=== PATIENT | female | born 1975 | race African-American/Black ===

== ENCOUNTER 2016-04-25 11:49 | Emergency (ER) | payer OTHER ==
[2016-04-25 11:58] VITALS: BP 134/87; PULSE 83; TEMP 98.3; BMI 39.1
[2016-04-25] MEDS ORDERED: KETOROLAC TROMETHAMINE 30 MG/1 ML VIAL IVPUSH ONE (15:14)
[2016-04-25] MEDS ORDERED: KETOROLAC TROMETHAMINE 30 MG/1 ML VIAL ONE (15:24)
--- NOTE | 2016-04-25 15:25 | PDOC ---
History of Present Illness - General Chief Complaint: Weakness Stated Complaint: DIZZINESS, WEAKNESS Time Seen by Provider: 04/25/16 14:24 History Source: Patient Exam Limitations: No Limitations - History of Present Illness Initial Comments: 04/25/16 15:16 40-year-old female presents the ED with complaints of chills, cough, and shortness of breath with exertion worsening over the past few days but present for approximately one month. 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 patient states is not a smoker has calf pain, recent travel, recent surgery, or on exogenous estrogen usage. Severity: mild, moderate Associated Symptoms: reports: chest pain, cough, fever/chills (chills), shortness of breath (with exertion), weakness (mild). denies: headaches, loss of appetite, malaise, nausea/vomiting Past History - Past Medical History Allergies/Adverse Reactions: Allergies Allergy/AdvReac Type Severity Reaction Status Date / Time ibuprofen Allergy Hives Verified 04/25/16 11:54 morphine AdvReac Mild Rash Verified 04/25/16 11:54 Home Medications: Ambulatory Orders Amlodipine Besylate [Norvasc -] 10 mg PO DAILY 04/25/16 HTN: Yes Suicide Attempt (Hx): No - Reproductive History LMP Normal: Yes Is Patient Now?: No (#): 10 Para: 4 Therapeutic (s) & number: Yes (5) - Immunization History Td Vaccination: No - Psycho/Social/Smoking Cessation Hx Anxiety: No Suicidal Ideation: No Smoking Status: No Smoking History: Never smoked Have you smoked in the past 12 months: No Number of Cigarettes Smoked Daily: 0 Information on smoking cessation initiated: No Hx Alcohol Use: No Drug/Substance Use Hx: No Substance Use Type: None Patient Lives Alone: No Lives with/in: spouse/SO Review of Systems - Review of Systems Able to Perform ROS?: Yes Constitutional: Yes: Chills, Weakness HEENTM: Yes: Nose Congestion. No: Symptoms Reported Respiratory: Yes: SOB with Exertion Cardiac (ROS): No: Symptoms Reported ABD/GI: No: Symptoms Reported : No: Symptoms Reported Musculoskeletal: No: Symptoms Reported Integumentary: No: Symptoms Reported Neurological: Yes: Headache (mild frontal) Endocrine: No: Symptoms Reported Hematologic/Lymphatic: No: Symptoms Reported *Physical Exam - Vital Signs Last Vital Signs Temp Pulse Resp BP Pulse Ox 98.3 F 83 18 134/87 100 04/25/16 11:55 04/25/16 11:55 04/25/16 11:55 04/25/16 11:55 04/25/16 11:55 - Physical Exam General Appearance: Yes: Nourished, Appropriately Dressed. No: Apparent Distress HEENT: positive: Pharynx Normal, Nasal Congestion (mild bilateral). negative: Pale Conjunctivae, Sinus Tenderness Neck: positive: Normal Thyroid, Supple. negative: Lymphadenopathy (R), Lymphadenopathy (L) Respiratory/Chest: positive: Lungs Clear, Normal Breath Sounds. negative: Respiratory Distress, Accessory Muscle Use Cardiovascular: positive: Regular Rhythm, Regular Rate. negative: Murmur Gastrointestinal/Abdominal: positive: Soft. negative: Tenderness Extremity: negative: Pedal Edema, Calf Tenderness Integumentary: positive: Normal Color, Warm, Moist Neurologic: positive: Motor Strength 5/5 (ambulatory) ED Treatment Course - LABORATORY CBC & Chemistry Diagram: 04/25/16 15:30 04/25/16 15:30 - RADIOLOGY Radiology Studies Ordered: Category Date Time Status CHEST PA & LAT [RAD] Stat Radiology 04/25/16 15:14 Ordered Medical Decision Making - Medical Decision Making 04/25/16 15:07 Patient complains of URI symptoms including chills nasal congestion, and now with shortness of breath with minimal exertion. Patient states had the flu approximately 4 weeks but states symptoms continued. Patient was PERC -. Patient was ordered for labs including cardiac profile, d-dimer, chest x-ray, lactic and blood culture as this may be pneumonia secondary to pneumonia 04/25/16 17:35 Laboratory Tests 04/25/16 04/25/16 04/25/16 15:30 15:30 15:30 WBC 9.8 Hgb 12.7 Hct 37.2 Plt Count 309 D Neutrophils % 73.6 D D-Dimer Sodium 139 Potassium 4.8 Chloride 105 Carbon Dioxide 26 Anion Gap 8 Random Glucose 82 Lactic Acid 0.589 ALT 18 Creatine Kinase 132 Troponin I < 0.02 Urine Blood Ur Leukocyte Esterase Urine RBC Urine WBC Urine HCG, Qual 04/25/16 04/25/16 04/25/16 15:40 15:40 16:31 WBC Hgb Hct Plt Count Neutrophils % D-Dimer 312 H Sodium Potassium Chloride Carbon Dioxide Anion Gap Random Glucose Lactic Acid ALT Creatine Kinase Troponin I Urine Blood 2+ H Ur Leukocyte Esterase Negative Urine RBC 2 Urine WBC 1 Urine HCG, Qual Negative Pt ordered for chest CTA to r/o PE. patient states feeling better. 04/25/16 18:50 Upon return from CAT scan patient is complaining of itching without hives difficulty swallowing, or difficulty breathing. Patient ordered for Solu-Medrol and Benadryl. 04/25/16 18:[address] shows left by basilar atelectasis otherwise normal CT of the chest with no evidence of PE or acute pathology. Patient will follow up with her PCP and be given a copy of her head scan and labs. *DC/Admit/Observation/Transfer Diagnosis at time of Disposition: Cough, Shortness of breath on exertion, Bronchitis - Discharge Dispostion Disposition: HOME Condition at time of disposition: Improved - Referrals Referrals: Anthony Gee [Primary Care Provider] - - Patient Instructions Printed Discharge Instructions: DI for Acute Bronchitis Additional Instructions: I recommend taking antibiotics until completed. Drink plenty of fluids and use throat lozenges to alleviate symptoms. Follow-up with your PCP and bring copy of your labs and CT with you.
[2016-04-25 15:43] LABS: BASOPHIL 1.2 % (0-2.0); EOSINOPHIL 3.2 % (0-4.5); MCH 28.9 pg (25.7-33.7); MCHC 34.3 g/dl (32.0-36.0); MEAN CELL VOLUME 84.4 fl (80-96); MEAN PLT VOLUME 8.6 fl (7.5-11.1); NEUTROPHILS 73.6 % (42.8-82.8); PLATELET COUNT 309 K/MM3 (134-434); RDW 14.8 % (11.6-15.6); WHITE BLOOD COUNT 9.8 K/mm3 (4.0-10.0)
[2016-04-25 15:48] LABS: URINE APPEARANCE CLEAR; URINE BILIRUBIN NEGATIVE (NEGATIVE); URINE COLOR LTYELLOW; URINE GLUCOSE (UA) NEGATIVE (NEGATIVE); URINE KETONE NEGATIVE (NEGATIVE); URINE LEUK ESTERASE NEGATIVE (NEGATIVE); URINE NITRITE NEGATIVE (NEGATIVE); URINE PROTEIN NEGATIVE (NEGATIVE); URINE UROBILINOGEN NEGATIVE E.U./dl (0.2-1.0)
[2016-04-25 16:02] LABS: URINE BLOOD 2+ (NEGATIVE)
[2016-04-25 16:04] LABS: URINE MUCUS FEW; URINE RBC 2 /hpf (0-3); URINE WBC 1 /hpf (3-5)
[2016-04-25 16:04] LABS: ALBUMIN 3.5 g/dl (3.4-5.0); ANION GAP 8 (8-16); BILIRUBIN,TOTAL 0.4 mg/dL (0.2-1.0); CALCIUM 8.7 mg/dL (8.5-10.1); CO2 26 mmol/L (21-32); CREATININE 0.7 mg/dL (0.55-1.02); GLUCOSE,RANDOM 82 mg/dL (74-106); SGPT/ALT 18 U/L (12-78); TOT PROT 7.2 g/dl (6.4-8.2)
[2016-04-25 16:06] LABS: ALK PHOS 49 U/L (45-117)
[2016-04-25 16:11] LABS: SGOT/AST 16 U/L (15-37); TROPONIN I < 0.02 ng/ml (0.00-0.05)
[2016-04-25] MEDS ORDERED: methylPREDNISolone NA SUCC 125 MG/2 ML VIAL IVPB ONE (18:53)
[2016-04-25] MEDS ORDERED: methylPREDNISolone NA SUCC 125 MG/2 ML VIAL ONE (19:08)
--- NOTE | 2016-04-27 14:21 | EKG ---
Test Reason : Blood Pressure : / mmHG Vent. Rate : 075 BPM Atrial Rate : 075 BPM P-R Int : 202 ms QRS Dur : 096 ms QT Int : 376 ms P-R-T Axes : 023 -14 009 degrees QTc Int : 419 ms NORMAL SINUS RHYTHM MODERATE VOLTAGE CRITERIA FOR LVH, MAY BE NORMAL VARIANT BORDERLINE ECG WHEN COMPARED WITH ECG OF 28-APR-2015 19:14, NO SIGNIFICANT CHANGE WAS FOUND Confirmed by MYRANDA TORRES MD ([id number]) on 04/27/2016 2:20:37 PM Referred By: Confirmed By:MYRANDA TORRES MD
== END 2016-04-25 19:59 | disposition home or self-care (01) ==
LOC: JER 11:49
PROC: 3E033GC Introduction of Other Therapeutic Substance into Peripheral Vein, Percutaneous Approach (ICD-10-PCS; principal; 2016-04-25)
PROC: 3E0333Z Introduction of Anti-inflammatory into Peripheral Vein, Percutaneous Approach (ICD-10-PCS; 2016-04-25)
DX: J40 Bronchitis, not specified as acute or chronic (principal); R06.02 Shortness of breath; R05 Cough; I10 Essential (primary) hypertension
CPT/HCPCS: 36415; 71020-TC; 71275-TC; 80053; 81003; 81015; 82550; 83605; 84484; 84703; 85025; 85379; 87040; 93005; 93010; 96374; 96375; 99283-25

== ENCOUNTER 2016-06-18 12:32 | Inpatient (IN) | payer OTHER ==
[2016-06-18 12:45] VITALS: BMI 40.3
--- NOTE | 2016-06-18 13:48 | PDOC ---
History of Present Illness - General Chief Complaint: Pain, Acute Stated Complaint: ABD PAIN Time Seen by Provider: 06/18/16 13:24 History Source: Patient Exam Limitations: No Limitations - History of Present Illness Travel History: No Initial Comments: 06/18/16 14:04 My chief complaint: Abdominal discomfort right upper lower since this morning with nausea and one episode of vomiting History of present illness: Patient is a 41-year-old female with a history of hypertension here today with sudden onset of right upper quadrant abdominal discomfort and lower abdominal discomfort and suprapubic discomfort with nausea. Patient reports that she vomited once. Patient denies any constipation or any diarrhea patient's last bowel movement was yesterday and was normal formed brown. Patient reports belging a few times. Pt. urinary symptoms or any history of renal calculi. Patient denies any oral discharge or any pain with sexual relations. Patient reports having an IUD for the last 2 years and spots once a month. Patient reports that pain is constant and is worse in certain positions when she is lying causing her to have to change her position. 06/18/16 14:05 06/18/16 14:11 06/18/16 18:[address] Anthony Gee PFSH: does not smoke or drinks drug use Surgical hx: rt. ankle surgical repair Past Medical HX: HTN, IVP 06/18/16 19:28 Timing/Duration: reports: other (lessens when she changes her position lying down) Abdominal Pain Onset Location: reports: RUQ, RLQ, suprapubic Pain Radiation: reports: no radiation. denies: flank Activities at Onset: reports: no specific activity Aggravating Factors: improves with: Change in position Alleviating Factors: improves with: Belching, Vomiting (once today) Past History - Past Medical History Allergies/Adverse Reactions: Allergies Allergy/AdvReac Type Severity Reaction Status Date / Time ibuprofen Allergy Hives Verified 06/18/16 12:42 morphine AdvReac Mild Rash Verified 06/18/16 12:42 Home Medications: Ambulatory Orders Amlodipine Besylate [Norvasc -] 10 mg PO DAILY 04/25/16 Acetaminophen [Tylenol .Regular Strength -] 650 mg PO Q6H PRN #0 tablet Amox-Tr/K Cl [Augmentin 875-125mg Tablet -] 1 tab PO BID@0800,1730 #10 tablet Amoxicillin/Potassium Clav [Augmentin 875-125 Tablet] 1 each PO BID #10 tablet 06/19/16 HTN: Yes Suicide Attempt (Hx): No - Reproductive History (#): 10 Para: 4 Therapeutic (s) & number: Yes (5) - Immunization History Td Vaccination: No - Psycho/Social/Smoking Cessation Hx Anxiety: No Suicidal Ideation: No Smoking Status: No Smoking History: Never smoked Have you smoked in the past 12 months: No Number of Cigarettes Smoked Daily: 0 Hx Alcohol Use: No Drug/Substance Use Hx: No Substance Use Type: None Abd/GI Specific PMHX - Complaint Specific PMHX Colitis: No Diverticulitis: No Gall Bladder Disease: No GERD: No Hepatitis: No Irritable Bowel Synd (IBS): No Pancreatitis: No GI Ulcer Disease: No Review of Systems - Review of Systems Able to Perform ROS?: Yes Constitutional: No: Symptoms Reported HEENTM: No: Symptoms Reported Respiratory: No: Symptoms reported Cardiac (ROS): No: Symptoms Reported ABD/GI: Yes: Nausea, Vomiting (onc todya ). No: Constipated, Diarrhea, Difficulty Swallowing : No: Symptoms Reported, Other Musculoskeletal: No: Symptoms Reported Integumentary: No: Symptoms Reported *Physical Exam - Vital Signs Last Vital Signs Temp Pulse Resp BP Pulse Ox 98.4 F 87 19 128/87 99 06/18/16 12:42 06/18/16 12:42 06/18/16 12:42 06/18/16 12:42 06/18/16 12:42 - Physical Exam General Appearance: Yes: Appropriately Dressed Respiratory/Chest: positive: Lungs Clear, Normal Breath Sounds. negative: Chest Tender, Respiratory Distress Cardiovascular: positive: Regular Rhythm, Regular Rate, S1, S2 Gastrointestinal/Abdominal: positive: Normal Bowel Sounds, Tender (RUQ, RLQ, suprapubic ), Soft, Tenderness (RUQ,RLQ,suprapubic). negative: Distended, Guarding, Rebound Musculoskeletal: negative: CVA Tenderness, CVA Tenderness (R), CVA Tenderness (L ) Integumentary: positive: Normal Color Neurologic: positive: Alert, Normal Response, Responsive ED Treatment Course - LABORATORY CBC & Chemistry Diagram: 06/19/16 07:00 06/19/16 07:00 Medical Decision Making - Medical Decision Making 06/18/16 14:11 06/18/16 14:11 Patient is a 41-year-old female with a history of hypertension here today with sudden onset of right upper quadrant abdominal discomfort and lower abdominal discomfort and suprapubic discomfort with nausea. Patient reports that she vomited once. Patient denies any constipation or any diarrhea patient's last bowel movement was yesterday and was normal formed brown. Patient reports belging a few times. Pt. urinary symptoms or any history of renal calculi. Patient denies any oral discharge or any pain with sexual relations. Patient reports having an IUD for the last 2 years and spots once a month. Patient reports that pain is constant and is worse in certain positions when she is lying causing her to have to change her position. R/O cholelithiasis/cholecystitis PLAN: Gallbladder ultrasound reveals limited study with no evidence of cholelithiasis or acute cholecystitis. Probable diffuse fatty infiltration of the liver. Mild right-sided hydronephrosis. Clinical correlation follow-up recommended that is mild. IVP patent. The possibility of a distal obstruction cannot be excluded. Per Dr. Farrell cbc with diff cmp ua urine hcg urine C & S lipase IV insert NS 0.9% bolus 1000 ml pepcid 20 mg IMVPB zofran 4 mg IVpush 06/18/16 14:05 06/18/16 15:33 pt returned from US reports less pain but continues to have RUQ, RLQ tenderness will give toradol 30 mg IV push has taken in the past without any kind of allergic reaction. 06/18/16 15:34 06/18/16 15:36 Laboratory Tests 06/18/16 06/18/16 06/18/16 13:53 13:53 13:53 WBC 16.0 H D RBC 4.36 Hgb 12.5 Hct 37.3 MCV 85.7 MCHC 33.5 RDW 14.5 Plt Count 256 MPV 8.4 Lymphocytes % 6.4 L D Monocytes % 2.7 L Eosinophils % 1.5 Basophils % 0.4 Sodium 140 Potassium 5.0 Chloride 105 Carbon Dioxide 29 Anion Gap 6 L BUN 11 Creatinine 0.7 Creat Clearance w eGFR > 60 Random Glucose 92 Calcium 8.5 Total Bilirubin 0.4 AST 20 D ALT 19 Alkaline Phosphatase 43 L Total Protein 6.7 Albumin 3.3 L Lipase 145 Urine Color Urine Appearance Urine pH Ur Specific [place] Urine Protein Urine Glucose (UA) Urine Ketones Urine Blood Urine Nitrite Urine Bilirubin Urine Urobilinogen Ur Leukocyte Esterase Urine HCG, Qual 06/18/16 13:53 WBC RBC Hgb Hct MCV MCHC RDW Plt Count MPV Lymphocytes % Monocytes % Eosinophils % Basophils % Sodium Potassium Chloride Carbon Dioxide Anion Gap BUN Creatinine Creat Clearance w eGFR Random Glucose Calcium Total Bilirubin AST ALT Alkaline Phosphatase Total Protein Albumin Lipase Urine Color Yellow Urine Appearance Clear Urine pH 7.0 D Ur Specific [place] 1.026 Urine Protein Negative Urine Glucose (UA) Negative Urine Ketones Negative Urine Blood Negative Urine Nitrite Negative Urine Bilirubin Negative Urine Urobilinogen 2.0 e.u/dl H Ur Leukocyte Esterase Negative Urine HCG, Qual Negative 06/18/16 16:40 Will get ABDOMINAL and pelvic cat scan without contrast patient's CAT scan revealed a 13 mL diameter appendix with indistinct surrounding fat planes compatible with acute appendicitis. No abscess or free air. IUD and uterus. Trace free fluids left adnexal probable physiologic Dr. Mendoza imaging hearing consultant will get type and screen zosyn 3.375.5 gm IV PB now consult with Dr. Miller SURGEON he will evaluate pt in ED for surgical consult will admit to Dr. Pratt Pt's PCP is Dr.Nasem Gee 06/18/16 18:39 06/18/16 18:52 06/18/16 18:53 06/18/16 19:11 06/18/16 19:11 06/18/16 19:29 06/18/16 19:30 06/18/16 19:34 06/20/16 19:43 *DC/Admit/Observation/Transfer Diagnosis at time of Disposition: Appendicitis, acute Qualifiers: Acute appendicitis type: unspecified acute appendicitis type Qualified Code(s) : K35.80 - Unspecified acute appendicitis - Discharge Dispostion Disposition: HOME Admit: Yes - Prescriptions - Referrals - Patient Instructions
[2016-06-18] MEDS ORDERED: SODIUM CHLORIDE 1,000 ML IV STA (13:57)
[2016-06-18] MEDS ORDERED: FAMOTIDINE 20 MG/50 ML IVPB 50 ML IVPB ONE ×2 (13:58→14:07)
[2016-06-18] MEDS ORDERED: ONDANSETRON 4 MG/2 ML VIAL IVPB ONE (13:58)
[2016-06-18] MEDS ORDERED: ONDANSETRON 4 MG/2 ML VIAL ONE (14:07)
[2016-06-18 14:32] LABS: BASOPHIL 0.4 % (0-2.0); EOSINOPHIL 1.5 % (0-4.5); MCH 28.7 pg (25.7-33.7); MCHC 33.5 g/dl (32.0-36.0); MEAN CELL VOLUME 85.7 fl (80-96); MEAN PLT VOLUME 8.4 fl (7.5-11.1); PLATELET COUNT 256 K/MM3 (134-434); RDW 14.5 % (11.6-15.6)
[2016-06-18 14:40] LABS: URINE APPEARANCE CLEAR; URINE BILIRUBIN NEGATIVE (NEGATIVE); URINE BLOOD NEGATIVE (NEGATIVE); URINE COLOR YELLOW; URINE GLUCOSE (UA) NEGATIVE (NEGATIVE); URINE KETONE NEGATIVE (NEGATIVE); URINE LEUK ESTERASE NEGATIVE (NEGATIVE); URINE NITRITE NEGATIVE (NEGATIVE); URINE PROTEIN NEGATIVE (NEGATIVE); URINE UROBILINOGEN 2.0 E.U/dl E.U./dl (0.2-1.0)
[2016-06-18 15:00] LABS: ALBUMIN 3.3 g/dl (3.4-5.0); ALK PHOS 43 U/L (45-117); ANION GAP 6 (8-16); BILIRUBIN,TOTAL 0.4 mg/dL (0.2-1.0); CALCIUM 8.5 mg/dL (8.5-10.1); CO2 29 mmol/L (21-32); CREATININE 0.7 mg/dL (0.55-1.02); GLUCOSE,RANDOM 92 mg/dL (74-106); SGPT/ALT 19 U/L (12-78); TOT PROT 6.7 g/dl (6.4-8.2)
[2016-06-18 15:03] LABS: SGOT/AST 20 U/L (15-37)
[2016-06-18] MEDS ORDERED: KETOROLAC TROMETHAMINE 60 MG/2 ML VIAL IVPUSH ONE (15:51)
[2016-06-18] MEDS ORDERED: KETOROLAC TROMETHAMINE 30 MG/1 ML VIAL ONE (16:17)
[2016-06-18] MEDS ORDERED: PIPERACILLIN/TAZOB 3.375 GM 3.375 GM in DEXTROSE 5%-WATER - 50 ML IVPB ONE (18:49)
[2016-06-18] MEDS ORDERED: PIPERACILLIN/TAZOB 3.375 GM 50 ML IVPB ONE (18:53)
--- NOTE | 2016-06-18 20:11 | PN ---
Progress Note (short form) - Note Progress Note: surgery pt seen and examined. full consult dictated. 41f morbidly obese presents with abd pain, n/v. wbc 16. u/s negative. ct shows acute appendicitis. on exam abd is soft with localized rlq tenderness with rebound. reducible ventral hernia. Plan- acute appendicitis, leukocytosis, localized peritonitis. agree with admission. agree with zosyn to cover e.coli and other gram -/enteric [place]. will proceed with surgery
--- NOTE | 2016-06-18 20:13 | OP ---
Operative Note - Note: Operative Date: 06/18/16 Pre-Operative Diagnosis: acute appendicitis, localized peritonitis, morbid obesity Operation: laparoscopic appedectomy, lavage Post-Operative Diagnosis: Same as Pre-op Surgeon: Cristhian Diaz Anesthesiologist/OFFICE COMMUNICATION PROFESSOR: Cristhian Urbina Anesthesia: General Specimens Removed: appendix Estimated Blood Loss (mls): 10 Operative Report Dictated: Yes
[2016-06-18] MEDS ORDERED: KETOROLAC TROMETHAMINE 30 MG/1 ML VIAL IVPUSH PRN (20:14)
[2016-06-18] MEDS ORDERED: oxyCODONE HCL 5 MG TABLET PO PRN ×2 (20:14→21:54)
[2016-06-18] MEDS ORDERED: ONDANSETRON 4 MG/2 ML VIAL IVPB PRN (20:14)
[2016-06-18] MEDS ORDERED: D5-1/2NS+20 MEQ KCL - 1,000 ML IV SCH (20:15)
[2016-06-18] MEDS ORDERED: HYDROmorphone HCL CARPU-JECT 1 MG/1 ML DISP.SYRIN IVPB PRN (20:20)
[2016-06-18] MEDS ORDERED: ROCURONIUM BROMIDE 50 MG/5 ML VIAL ONE (20:37)
[2016-06-18] MEDS ORDERED: SUCCINYLCHOLINE CHLORIDE 200 MG/10 ML VIAL ONE (20:37)
[2016-06-18] MEDS ORDERED: ceFAZolin SODIUM 1 GM VIAL IVPB ONE (20:55)
--- NOTE | 2016-06-18 21:26 | CONS ---
DATE OF CONSULTATION: 06/18/2016 REASON FOR CONSULTATION: Acute appendicitis. This is a consultation at the request of the emergency room physician and thus an emergency room consultation. BRIEF HISTORY: This is a 41-year-old female with morbid obesity and hypertension, presents to [facility] with less than 1 day history of right-sided abdominal pain, nausea and vomiting. She was found to have a leukocytosis in the emergency room and her vital signs were otherwise stable. She was initially worked up for gallbladder disease with a negative ultrasound, then went for a CAT scan of her abdomen and pelvis, which was consistent with acute appendicitis. Patient was admitted to the hospital, started on Zosyn antibiotic, and a surgical consultation was requested. PAST MEDICAL HISTORY: As in HPI. PAST SURGICAL HISTORY: Right ankle surgery and IUD as well as multiple D&Cs. SOCIAL HISTORY: Negative for alcohol, negative for tobacco. FAMILY HISTORY: Negative for malignancy in the immediate family. She has allergies to MORPHINE, which caused her to itch, and she has allergies to IBUPROFEN but not to Motrin. Her IBUPROFEN allergy causes itching as well. She has never had a colonoscopy. Her home medication include Norvasc. REVIEW OF SYSTEMS: General: Denies fatigue or malaise. Cardiac: Denies chest pain or palpitations. Respiratory: Denies shortness of breath or wheeze. Gastrointestinal: No diarrhea, no blood in her stool, otherwise as stated in HPI. Genitourinary: Denies dysuria. Musculoskeletal: Denies joint pain, joint swelling. Psychiatric: Denies anxiety, depression, or hearing voices. PHYSICAL EXAMINATION: General: This is a morbidly obese 41-year-old female in no distress. Vital Signs: She is afebrile, her vital signs are stable. HEENT: Her head is normocephalic. Sclerae anicteric. Neck: Supple. Chest: Clear. Abdomen: Soft. There is a ventral hernia that is reducible. She has significant right lower quadrant tenderness with rebound. Extremities: Her extremities have no edema. On review of her laboratory, her white blood cell count is elevated at 16.0 with an 89% shift. Her chemistries are unremarkable. On review of her imaging, she has a CAT scan of her abdomen and pelvis which shows a dilated appendix with inflammatory changes that is nonruptured. ASSESSMENT: This is a 41-year-old female, morbidly obese, with right lower quadrant abdominal pain, nausea, vomiting, right lower quadrant tenderness with rebound, leukocytosis, and a CAT scan evidence of acute appendicitis with a negative ultrasound of the gallbladder. Clinically this is acute appendicitis with localized peritonitis as well as leukocytosis. Patient appears to be stable. Agree with admission. I agree with Zosyn to cover Escherichia coli and other gram-negative and enteric related [place]. Will move in the direction of surgery. Risks and benefits of surgery have been explained to the patient in detail. These are including but not limited to the possibility of conversion to open, the possibility of injury to viscera or bladder, the possibility of infection, the possibility of staple line dehiscence, the possibility of future obstruction, the possibility of future hernia, plus a multitude of medical risks including but not limited to cardiac, neurologic, pulmonary, and vascular complications, even . Patient understands these risks and is agreeable to surgery. She has also been offered medical management of appendicitis but declines. She prefers the more definitive nature of surgery, would likely decrease length of stay, and the prevention of future recurrence. DO GRACE TERAN/[id number]
[2016-06-18] MEDS ORDERED: GLYCOPYRROLATE 0.2 MG/1 ML VIAL ONE ×4 (21:29)
[2016-06-18] MEDS ORDERED: NEOSTIGMINE METHYLSULFATE 0.5 MG/ML - 10 ML MDV ONE (21:29)
[2016-06-18] MEDS ORDERED: PROMETHAZINE HCL 25 MG/1 ML VIAL IVPUSH PRN (21:54)
[2016-06-18] MEDS ORDERED: METRONIDAZOLE 500 MG PREMIXED 100 ML IVPB ONE (22:01)
[2016-06-18] MEDS: METRONIDAZOLE 500 MG PREMIXED 100 ML IVPB SCH (22:03)
--- NOTE | 2016-06-18 22:58 | OP ---
DATE OF OPERATION: 06/18/2016 PREOPERATIVE DIAGNOSIS: Acute appendicitis, localized peritonitis, leukocytosis. POSTOPERATIVE DIAGNOSIS: Acute appendicitis, localized peritonitis, leukocytosis. PROCEDURE: Laparoscopic appendectomy, lavage. SURGEON: Cristhian Diaz D.O. SENIOR LEAD PROJECT MANAGER: None. ANESTHESIOLOGIST: Cristhian Urbina M.D. (general) SPECIMEN: Appendix. DRAINS: None. BLOOD LOSS: Minimal. COMPLICATIONS: None. DISPOSITION: To recovery room in stable condition. BRIEF HISTORY: This is a 41-year-old female morbidly obese who presented to [facility] with signs and symptoms of acute appendicitis with CAT scan evidence to support it. She presents now for surgery. PROCEDURE: Patient is placed in a supine position. After general anesthesia was initiated, the abdomen was prepped and draped in a sterile fashion, and a Clarke catheter was inserted. The patient was already on Zosyn antibiotic. Next, a vertical incision was made infraumbilical with scalpel blade going through skin and subcutaneous tissue. This was made below a ventral hernia, which was not addressed at the time of surgery. Next, the fascia was incised vertically. The peritoneum entered bluntly. And a 0 Vicryl stitch was placed across the fascial defect and used to secure the Castelan trocar. Pneumoperitoneum was then created followed by insertion of two 5-mm trocars, one suprapubic with care to avoid injuring the bladder and 1 in the left lower quadrant lateral to the rectus muscle. At this point, attention was turned toward the right lower quadrant. The appendix was seen and visualized. It was thick and inflamed, nonperforated. A window was made at the base. The Ligasure device was used to divide the mesoappendix with multiple welds. The Endo ELLIE ultra purple load 60-mm stapler was used to divide the appendix, and a small portion of the cecum. The staple line was inspected, it was intact with no bleeding, no breaks , no signs of ischemia. At this point, the trocars were removed under direct visualization. No bleeding was seen. A limited lavage had been done. Pneumoperitoneum was released. The fascia of the infraumbilical trocar site was then closed with multiple interrupted 0 Vicryl sutures. The 3 skin incisions were closed with fran and Dermabond dressing was placed. DO GRACE TERAN/[id number] :34 MTDD
[2016-06-18] MEDS: D5-1/2NS+20 MEQ KCL - 1,000 ML IV SCH (23:03)
[2016-06-19] MEDS: cefTRIAXone 1 GM/50 ML BAG (PRE-DOCKED) IVPB SCH ×2 (00:15→10:30)
[2016-06-19] MEDS: METRONIDAZOLE 500 MG PREMIXED 100 ML IVPB SCH ×3 (03:02→14:49)
[2016-06-19 08:35] LABS: BASOPHIL 0.3 % (0-2.0); EOSINOPHIL 1.7 % (0-4.5); MCH 28.4 pg (25.7-33.7); MEAN CELL VOLUME 86.2 fl (80-96); MEAN PLT VOLUME 8.5 fl (7.5-11.1); NEUTROPHILS 76.7 % (42.8-82.8); PLATELET COUNT 228 K/MM3 (134-434); RDW 14.5 % (11.6-15.6); WHITE BLOOD COUNT 11.4 K/mm3 (4.0-10.0)
[2016-06-19 08:53] LABS: ALBUMIN 2.7 g/dl (3.4-5.0); ALK PHOS 39 U/L (45-117); ANION GAP 9 (8-16); BILIRUBIN,TOTAL 0.5 mg/dL (0.2-1.0); CALCIUM 8.1 mg/dL (8.5-10.1); CO2 28 mmol/L (21-32); CREATININE 0.7 mg/dL (0.55-1.02); GLUCOSE,RANDOM 100 mg/dL (74-106); SGOT/AST 11 U/L (15-37); SGPT/ALT 14 U/L (12-78); TOT PROT 5.8 g/dl (6.4-8.2)
--- NOTE | 2016-06-19 08:54 | PN ---
Progress Note (short form) - Note Progress Note: POD #1 - s/p laparoscopic appendectomy under general anesthesia. Pt. doing well, resting comfortably in bed eating breakfast. No complaints. No apparent anesthetic complications noted. Continue current care.
[2016-06-19] MEDS ORDERED: PT OWN MED DRAWER 7, Y5N ONE (09:06)
--- NOTE | 2016-06-19 09:06 | HP ---
Admitting History and Physical - Primary Care Physician PCP: Anthony Gee - Admission Chief Complaint: S/P APPY History Source: Patient, Medical Record Limitations to Obtaining History: No Limitations - Past Medical History ...LMP: 03/09/14 - Smoking History Smoking history: Never smoked Have you smoked in the past 12 months: No Aproximately how many cigarettes per day: 0 - Alcohol/Substance Use Hx Alcohol Use: No Home Medications - Allergies Allergies/Adverse Reactions: Allergies Allergy/AdvReac Type Severity Reaction Status Date / Time ibuprofen Allergy Hives Verified 06/18/16 12:42 morphine AdvReac Mild Rash Verified 06/18/16 12:42 - Home Medications Home Medications: Ambulatory Orders Amlodipine Besylate [Norvasc -] 10 mg PO DAILY 04/25/16 Amoxicillin/Potassium Clav [Augmentin 875-125 Tablet] 1 each PO BID #10 tablet 06/19/16 Review of Systems - Review of Systems Constitutional: denies: Chills, Fever Cardiovascular: denies: Chest Pain Respiratory: denies: SOB Gastrointestinal: denies: Abdominal Pain Physical Examination Vital Signs: Vital Signs Temperature 98.9 F 06/19/16 06:00 Pulse Rate 74 06/19/16 06:00 Respiratory Rate 20 06/19/16 06:00 Blood Pressure 116/72 06/19/16 06:00 O2 Sat by Pulse Oximetry (%) 97 06/18/16 23:30 Constitutional: Yes: Calm Cardiovascular: Yes: WNL Respiratory: Yes: WNL Gastrointestinal: Yes: Tenderness (MILD TENDER WITH DEEP PALPATION). No: Tenderness, Rebound Edema: No Labs: CBC, BMP 06/19/16 07:00 Imaging - Results Cat Scan: Report Reviewed Ultrasound: Report Reviewed Problem List - Problems (1) Appendicitis Code(s): K37 - UNSPECIFIED APPENDICITIS Assessment/Plan My chief complaint: Abdominal discomfort right upper lower since this morning with nausea and one episode of vomiting History of present illness: Patient is a 41-year-old female with a history of hypertension here today with sudden onset of right upper quadrant abdominal discomfort and lower abdominal discomfort and suprapubic discomfort with nausea. Patient reports that she vomited once. Patient denies any constipation or any diarrhea patient's last bowel movement was yesterday and was normal formed brown. Patient reports belging a few times. Pt. urinary symptoms or any history of renal calculi. Patient denies any oral discharge or any pain with sexual relations. Patient reports having an IUD for the last 2 years and spots once a month. Patient reports that pain is constant and is worse in certain positions when she is lying causing her to have to change her position. (1) Appendicitis Code(s): K37 - UNSPECIFIED APPENDICITIS S/P APPY PO ABx APPRECIATE SURG NOTE -> surgically stable for d/c. ok to shower. ok to drive. regular diet. 2 weeks off work. no lifting. f/u in 2 weeks for staple removal and to review pathology. [phone]. CLEARED FOR DISCHARGE DISCHARGE PASTOR MACHADO
[2016-06-19] MEDS: amLODIPine BESYLATE 10 MG TABLET (FP) PO SCH (09:22)
[2016-06-19] MEDS: ENOXAPARIN NA (PORCINE) 40 MG/0.4 ML DISP.SYRIN SQ SCH (09:23)
[2016-06-19] MEDS ORDERED: ENOXAPARIN NA (PORCINE) 40 MG/0.4 ML DISP.SYRIN SQ SCH (10:00)
[2016-06-19] MEDS ORDERED: PANTOPRAZOLE SODIUM 100 ML IVPB SCH (10:00)
[2016-06-19] MEDS: D5-1/2NS+20 MEQ KCL - 1,000 ML IV SCH (13:58)
--- NOTE | 2016-06-19 18:28 | PN ---
Progress Note (short form) - Note Progress Note: surgery pt seen and examined. feels well. ambulating. voiding. tolerating liquids. afebile abd- soft, nt, nd, incisions clean Plan- surgically stable for d/c. ok to shower. ok to drive. regular diet. 2 weeks off work. no lifting. f/u in 2 weeks for staple removal and to review pathology. [phone]. will give rx augmentin 875 bid for 5 days.
[2016-06-19] MEDS: AMOX TR/POT CLAV 875MG/125MG TABLETS (FP) PO SCH (19:12)
[2016-06-19] MEDS: ACETAMINOPHEN 325 MG TABLET (FP) PO PRN (21:00)
[2016-06-20 05:51] VITALS: TEMP 98.7
[2016-06-20] MEDS: amLODIPine BESYLATE 10 MG TABLET (FP) PO SCH (09:12)
[2016-06-20] MEDS: ENOXAPARIN NA (PORCINE) 40 MG/0.4 ML DISP.SYRIN SQ SCH (09:12)
[2016-06-20] MEDS: AMOX TR/POT CLAV 875MG/125MG TABLETS (FP) PO SCH (09:13)
[2016-06-20] MEDS: ACETAMINOPHEN 325 MG TABLET (FP) PO PRN (09:13)
[2016-06-20 11:59] VITALS: BP 140/80; PULSE 100
--- NOTE | 2016-06-20 13:46 | PATH ---
Surgical Pathology Report Patient Name: HADLEY SHIN [facility]. Rec. #: [id number] /Age/Gender: 1975 (Age: 41) / F Account: [id number] Location: [facility] MED/SURG Taken: 06/18/2016 Received: 06/19/2016 Reported: 06/20/2016 Physicians: Cristhian Diaz M.D. Specimen(s) Received APPENDIX Clinical History Appendicitis Final Diagnosis APPENDIX, APPENDECTOMY: ACUTE APPENDICITIS AND PERIAPPENDICITIS. Electronically Signed Doc Emmanuel M.D. Gross Description Received in formalin, labeled "appendix" is a 10 cm in length vermiform appendix with a stapled margin of resection and moderate attached fat. The serosa is chappell-gregg with attached gregg exudate. Sectioning reveals a dilated lumen containing chappell pus. The wall of the appendix averages 0.2 cm in thickness. Typesetting Supervisor sections are submitted in 2 cassettes as follows: 1-bisected distal tip of appendix; 2-cross sections of appendix. /06/19/2016 [facility]06/19/2016
== END 2016-06-20 11:26 | disposition home or self-care (01) | DRG 225 ==
LOC: JER 12:32 → JERBED 19:32 → J8W 23:38
PROVIDERS: ADMIT Family Medicine; ATTEND Family Medicine
PROC: 3E1M38Z Irrigation of Peritoneal Cavity using Irrigating Substance, Percutaneous Approach (ICD-10-PCS; 2016-06-18)
PROC: 0DTJ4ZZ Resection of Appendix, Percutaneous Endoscopic Approach (ICD-10-PCS; principal; 2016-06-18 20:00)
DX: K35.3 Acute appendicitis with localized peritonitis (principal); D72.828 Other elevated white blood cell count; I10 Essential (primary) hypertension; E66.01 Morbid (severe) obesity due to excess calories; Z68.41 Body mass index [BMI] 40.0-44.9, adult; Z71.3 Dietary counseling and surveillance
CPT/HCPCS: 36415; 74176-TC; 76705-TC; 80053; 81003; 83690; 84703; 85025; 86850; 86900; 86901; 87086; 88304-TC; 94010; 94760; 99285-25

== ENCOUNTER 2016-07-11 16:11 | Emergency (ER) | payer OTHER ==
[2016-07-11 16:27] VITALS: BMI 42.7
[2016-07-11] MEDS ORDERED: methylPREDNISolone NA SUCC 125 MG/2 ML VIAL IVPB ONE (20:14)
[2016-07-11] MEDS ORDERED: SODIUM CHLORIDE 500 ML IV STA (20:16)
[2016-07-11] MEDS ORDERED: methylPREDNISolone NA SUCC 125 MG/2 ML VIAL ONE (22:00)
[2016-07-11 22:01] LABS: BASOPHIL 0.7 % (0-2.0); MCH 28.4 pg (25.7-33.7); MCHC 33.2 g/dl (32.0-36.0); MEAN CELL VOLUME 85.4 fl (80-96); MEAN PLT VOLUME 8.4 fl (7.5-11.1); NEUTROPHILS 59.8 % (42.8-82.8); PLATELET COUNT 279 K/MM3 (134-434); RDW 14.7 % (11.6-15.6); WHITE BLOOD COUNT 7.8 K/mm3 (4.0-10.0)
[2016-07-11 22:20] LABS: URINE APPEARANCE CLEAR; URINE BILIRUBIN NEGATIVE (NEGATIVE); URINE COLOR LTYELLOW; URINE GLUCOSE (UA) NEGATIVE (NEGATIVE); URINE KETONE NEGATIVE (NEGATIVE); URINE LEUK ESTERASE NEGATIVE (NEGATIVE); URINE NITRITE NEGATIVE (NEGATIVE); URINE PROTEIN NEGATIVE (NEGATIVE); URINE UROBILINOGEN NEGATIVE E.U./dl (0.2-1.0)
[2016-07-11 22:21] LABS: URINE BLOOD 1+ (NEGATIVE)
[2016-07-11 22:22] LABS: URINE HYALINE CAST 1 /lpf; URINE MUCUS RARE; URINE RBC 6 /hpf (0-3); URINE WBC 3 /hpf (3-5)
[2016-07-11 22:27] LABS: ALBUMIN 3.5 g/dl (3.4-5.0); ALK PHOS 49 U/L (45-117); ANION GAP 11 (8-16); BILIRUBIN,TOTAL 0.3 mg/dL (0.2-1.0); CALCIUM 8.8 mg/dL (8.5-10.1); CO2 24 mmol/L (21-32); COCKROFT - GAULT 253.2915; CREATININE 0.6 mg/dL (0.55-1.02); GLUCOSE,RANDOM 87 mg/dL (74-106); SGOT/AST 15 U/L (15-37); SGPT/ALT 19 U/L (12-78); TOT PROT 7.1 g/dl (6.4-8.2)
--- NOTE | 2016-07-11 23:07 | PDOC ---
History of Present Illness - General Chief Complaint: Shortness of Breath Stated Complaint: PCP SENT/SHORTNESS OF BREATH/BACK PAIN Time Seen by Provider: 07/11/16 19:55 History Source: Patient Exam Limitations: No Limitations - History of Present Illness Initial Comments: 07/11/16 22:58 41yo Female patient w/ PmHx: Appendectomy (June 18), HTN, presents to ED c/o back pain, SOB for past "couple days." Patient states she visited with her PCP- Dr. Barrientos, but saw Dr. Camejo who is concerned for PE. Patient denies CP, Abd pain, n/v/d, diff breathing, fever, dysuria, hematuria, or any other complaints at this time. LNMP: "couple days ago." PCP Dr. Barrientos. Timing/Duration: reports: week Severity: reports: moderate Possible Cause: Yes: no prior episodes Modifying Factors: worse with: activity, albuterol inhaler, albuterol nebulizer , antibiotics, coughing, lying down, oxygen, rest, other Associated Symptoms: reports: shortness of breath, other (Back pain) Aspirin Received prior to arrival: No: no aspirin today, unknown, 81 mg x 1, 81 mg x 2, 81 mg x 3, 81 mg x 4, 325 mg x 1, provided at home, provided by EMS, provided by ED ASA Contraindications(Core Measure): No: Allergy, Other, Active Blding w/i 24 hrs., Plavix, Receiving Warfarin Past History - Travel Traveled outside of the country in the last 30 days: No Close contact w/someone who was outside of country & ill: No - Past Medical History Allergies/Adverse Reactions: Allergies Allergy/AdvReac Type Severity Reaction Status Date / Time ibuprofen Allergy Hives Verified 07/11/16 16:28 morphine AdvReac Mild Rash Verified 07/11/16 16:28 Home Medications: Ambulatory Orders Amlodipine Besylate [Norvasc -] 10 mg PO DAILY 04/25/16 Acetaminophen [Tylenol .Regular Strength -] 650 mg PO Q6H PRN #0 tablet Amox-Tr/K Cl [Augmentin 875-125mg Tablet -] 1 tab PO BID@0800,1730 #10 tablet Amoxicillin/Potassium Clav [Augmentin 875-125 Tablet] 1 each PO BID #10 tablet 06/19/16 Methocarbamol [Robaxin -] 500 mg PO TID PRN #21 tablet 07/12/16 HTN: Yes Suicide Attempt (Hx): No - Surgical History Appendectomy: Yes - Reproductive History (#): 10 Para: 4 Therapeutic (s) & number: Yes (5) - Immunization History Td Vaccination: No - Psycho/Social/Smoking Cessation Hx Anxiety: No Suicidal Ideation: No Smoking Status: No Smoking History: Never smoked Have you smoked in the past 12 months: No Number of Cigarettes Smoked Daily: 0 Hx Alcohol Use: No Drug/Substance Use Hx: No Substance Use Type: None Hx Substance Use Treatment: No Respiratory Specific PMHX - Complaint Specific PMHX Angina: No Bronchitis: No Pneumonia: No Pulmonary Embolus: No TB (Tuberculosis): No Review of Systems - Review of Systems Able to Perform ROS?: Yes Is the patient limited Mosotho proficient: No Constitutional: No: Chills, Fever Respiratory: Yes: Shortness of Breath. No: Cough, Stridor, Wheezing Cardiac (ROS): No: Chest Pain, Lightheadedness, Palpitations, Syncope, Chest Tightness ABD/GI: No: Diarrhea, Nausea, Poor Appetite, Poor Fluid Intake, Vomiting : No: Dysuria, Flank Pain, Hematuria Musculoskeletal: Yes: Back Pain Integumentary: No: Bruising, Erythema, Rash, Sweating Neurological: No: Headache, Numbness, Seizure, Tremors, Weakness, Ataxia, Dizziness All Other Systems: Reviewed and Negative *Physical Exam - Vital Signs Last Vital Signs Temp Pulse Resp BP Pulse Ox 98.5 F 77 16 134/80 99 07/11/16 16:24 07/11/16 16:24 07/11/16 16:24 07/11/16 16:24 07/11/16 16:24 - Physical Exam General Appearance: Yes: Nourished, Appropriately Dressed. No: Apparent Distress, Mild Distress, Moderate Distress, Severe Distress HEENT: positive: EOMI, DENISE, Normal ENT Inspection, Normal Voice, Symmetrical, TMs Normal, Pharynx Normal. negative: Pharyngeal Erythema, Tonsillar Exudate, Tonsillar Erythema, Nasal Congestion, Rhinorrhea, Sinus Tenderness, TM Bulging, TM Dull, TM Erythema Neck: positive: Trachea midline, Supple. negative: Stridor, Lymphadenopathy (R) , Lymphadenopathy (L) Respiratory/Chest: positive: Lungs Clear, Normal Breath Sounds, Decreased Breath Sounds (Bibasilar). negative: Crackles, Rales, Stridor, Wheezing Cardiovascular: positive: Regular Rhythm, Regular Rate. negative: Edema, JVD, Murmur Gastrointestinal/Abdominal: positive: Normal Bowel Sounds, Soft. negative: Distended, Guarding, Rebound, Tenderness Musculoskeletal: positive: Normal Inspection. negative: CVA Tenderness Extremity: positive: Normal Capillary Refill, Normal Inspection, Normal Range of Motion Integumentary: positive: Normal Color, Dry, Warm Neurologic: positive: business development professional II-XII NML intact, Fully Oriented, Alert, Normal Mood/ Affect, Normal Response, Motor Strength 08/04 ED Treatment Course - LABORATORY CBC & Chemistry Diagram: 07/11/16 21:50 07/11/16 21:50 - ADDITIONAL ORDERS Additional order review: Laboratory Results 07/11/16 07/11/16 22:10 21:50 Sodium 138 Potassium 3.8 Chloride 103 Carbon Dioxide 24 Anion Gap 11 BUN 14 D Creatinine 0.6 Creat Clearance w eGFR > 60 Random Glucose 87 Calcium 8.8 Total Bilirubin 0.3 D AST 15 D ALT 19 D Alkaline Phosphatase 49 D Total Protein 7.1 D Albumin 3.5 D Urine Color Ltyellow Urine Appearance Clear Urine pH 5.0 D Ur Specific [place] 1.024 Urine Protein Negative Urine Glucose (UA) Negative Urine Ketones Negative Urine Blood 1+ H Urine Nitrite Negative Urine Bilirubin Negative Urine Urobilinogen Negative Ur Leukocyte Esterase Negative Urine RBC 6 Urine WBC 3 Ur Epithelial Cells Few Hyaline Casts 1 Urine Mucus Rare Urine HCG, Qual Negative 07/11/16 21:50 RBC 4.46 MCV 85.4 MCHC 33.2 RDW 14.7 MPV 8.4 Neutrophils % 59.8 D Lymphocytes % 30.3 D Monocytes % 4.2 Eosinophils % 5.0 H D Basophils % 0.7 - RADIOLOGY Radiology Studies Ordered: Category Date Time Status CHEST CTA [CT] Stat CT Scan 07/11/16 20:14 Ordered - Medications Given in the ED: ED Medications Discontinued Medications Generic Name Dose Route Start Last Admin Trade Name Freq PRN Reason Stop Dose Admin Diphenhydramine HCl 25 mg 07/11/16 20:14 07/11/16 22:02 Benadryl Injection - IVPUSH 07/11/16 20:15 25 mg ONCE ONE Administration Sodium Chloride 500 mls @ 500 mls/hr 07/11/16 20:16 07/11/16 22:02 Normal Saline - IV 07/11/16 21:15 500 mls/hr ASDIR STA Administration Methylprednisolone Sodium Succinate 125 mg 07/11/16 20:14 07/11/16 22:02 Solu-Medrol - IVPB 07/11/16 20:15 125 mg ONCE ONE Administration *DC/Admit/Observation/Transfer Diagnosis at time of Disposition: Back pain Qualifiers: Back pain location: thoracic back pain Chronicity: acute Back pain laterality: left Qualified Code(s): M54.6 - Pain in thoracic spine - Discharge Dispostion Disposition: HOME Condition at time of disposition: Stable Admit: No - Prescriptions Prescriptions: Methocarbamol [Robaxin -] 500 mg PO TID PRN #21 tablet PRN Reason: Back Pain - Patient Instructions Printed Discharge Instructions: DI for Thoracic Back Pain Additional Instructions: FOLLOW UP WITH DR. BARRIENTOS THIS WEEK FOR FURTHER EVALUATION. TAKE MEDICATIONS PRESCRIBED. MOTRIN OR TYLENOL FOR PAIN NEEDED. ROBAXIN MUSCLE RELAXER. DRINK PLENTY FLUIDS AND REST. Print Language: OCCITAN - Post Discharge Activity Work/School Note: Back to Work
--- NOTE | 2016-07-11 23:12 | PDOC ---
*Physical Exam - Vital Signs Last Vital Signs Temp Pulse Resp BP Pulse Ox 98.5 F 77 16 134/80 99 07/11/16 16:24 07/11/16 16:24 07/11/16 16:24 07/11/16 16:24 07/11/16 16:24 ED Treatment Course - LABORATORY CBC & Chemistry Diagram: 07/11/16 21:50 07/11/16 21:50 - ADDITIONAL ORDERS Additional order review: Laboratory Results 07/11/16 07/11/16 22:10 21:50 Sodium 138 Potassium 3.8 Chloride 103 Carbon Dioxide 24 Anion Gap 11 BUN 14 D Creatinine 0.6 Creat Clearance w eGFR > 60 Random Glucose 87 Calcium 8.8 Total Bilirubin 0.3 D AST 15 D ALT 19 D Alkaline Phosphatase 49 D Total Protein 7.1 D Albumin 3.5 D Urine Color Ltyellow Urine Appearance Clear Urine pH 5.0 D Ur Specific [place] 1.024 Urine Protein Negative Urine Glucose (UA) Negative Urine Ketones Negative Urine Blood 1+ H Urine Nitrite Negative Urine Bilirubin Negative Urine Urobilinogen Negative Ur Leukocyte Esterase Negative Urine RBC 6 Urine WBC 3 Ur Epithelial Cells Few Hyaline Casts 1 Urine Mucus Rare Urine HCG, Qual Negative 07/11/16 21:50 RBC 4.46 MCV 85.4 MCHC 33.2 RDW 14.7 MPV 8.4 Neutrophils % 59.8 D Lymphocytes % 30.3 D Monocytes % 4.2 Eosinophils % 5.0 H D Basophils % 0.7 - Medications Given in the ED: ED Medications Discontinued Medications Generic Name Dose Route Start Last Admin Trade Name Freq PRN Reason Stop Dose Admin Diphenhydramine HCl 25 mg 07/11/16 20:14 07/11/16 22:02 Benadryl Injection - IVPUSH 07/11/16 20:15 25 mg ONCE ONE Administration Sodium Chloride 500 mls @ 500 mls/hr 07/11/16 20:16 07/11/16 22:02 Normal Saline - IV 07/11/16 21:15 500 mls/hr ASDIR STA Administration Methylprednisolone Sodium Succinate 125 mg 07/11/16 20:14 07/11/16 22:02 Solu-Medrol - IVPB 07/11/16 20:15 125 mg ONCE ONE Administration Medical Decision Making - Medical Decision Making 07/11/16 23:12 agree with care from MIGUEL A Buckner *DC/Admit/Observation/Transfer Diagnosis at time of Disposition: Back pain - Discharge Dispostion Disposition: HOME Condition at time of disposition: Stable - Referrals Referrals: Shayan Barrientos MD [Primary Care Provider] - - Patient Instructions Printed Discharge Instructions: DI for Thoracic Back Pain Additional Instructions: FOLLOW UP WITH DR. BARRIENTOS THIS WEEK FOR FURTHER EVALUATION. TAKE MEDICATIONS PRESCRIBED. MOTRIN OR TYLENOL FOR PAIN NEEDED. ROBAXIN MUSCLE RELAXER. DRINK PLENTY FLUIDS AND REST. Print Language: HUNGARIAN - Post Discharge Activity Work/School Note: Back to Work
[2016-07-12 04:14] VITALS: BP 132/78; PULSE 70; TEMP 98.6
== END 2016-07-12 01:10 | disposition home or self-care (01) ==
LOC: JER 16:11
PROC: 3E0337Z Introduction of Electrolytic and Water Balance Substance into Peripheral Vein, Percutaneous Approach (ICD-10-PCS; principal; 2016-07-11)
PROC: 3E0333Z Introduction of Anti-inflammatory into Peripheral Vein, Percutaneous Approach (ICD-10-PCS; 2016-07-11)
PROC: 3E033GC Introduction of Other Therapeutic Substance into Peripheral Vein, Percutaneous Approach (ICD-10-PCS; 2016-07-11)
DX: M54.6 Pain in thoracic spine (principal); I10 Essential (primary) hypertension
CPT/HCPCS: 36415; 71275-TC; 80053; 81003; 81015; 84703; 85025; 96361; 96374; 96375; 99283-25

== ENCOUNTER 2018-03-24 22:20 | Emergency (ER) | payer OTHER ==
[2018-03-24 22:29] VITALS: BP 133/88; PULSE 86; TEMP 98.3; BMI 39.1
[2018-03-24] MEDS ORDERED: LIDOCAINE HCL 1%, 10 MG/ML (50 mL VIAL) SQ ONE (22:46)
[2018-03-24] MEDS ORDERED: LIDOCAINE HCL 1%, 10 MG/ML (20ML VIAL) ONE (22:59)
[2018-03-24] MEDS ORDERED: DIPHTH,PERTUSS(ACELL),TET 0.5 ML DISP.SYRIN IM ONE (23:24)
[2018-03-24] MEDS ORDERED: TETANUS AND DIPHTHERIA TOXOID 0.5 ML DISP.SYRIN IM ONE (23:24)
--- NOTE | 2018-03-24 23:31 | PDOC ---
History of Present Illness - General Chief Complaint: Injury Stated Complaint: RIGHT HAND FINGER PAIN Time Seen by Provider: 03/24/18 22:38 History Source: Patient Exam Limitations: No Limitations - History of Present Illness Initial Comments: 03/24/18 23:27 Patient is a 42 year old female with h/o HTN c/o swelling, pain and redness to the right 3rd finger distal tip. States 3 days ago tore the cuticle off then the finger got swollen progressively worsened now pain 4/10, throbbing. Prior episode of this same injury in the passed was lanced. PMD: Marlen ALL: motrin, iv contrast, morphine Review of Systems: GENERAL/CONSTITUTIONAL: No fever or chills. No weakness. No weight change. HEAD, EYES, EARS, NOSE AND THROAT: No change in vision. No ear pain or discharge. No sore throat. CARDIOVASCULAR: No chest pain or shortness of breath. RESPIRATORY: No cough, wheezing, or hemoptysis. GASTROINTESTINAL: No nausea, vomiting, diarrhea or constipation. No rectal bleeding. GENITOURINARY: No dysuria, frequency, or change in urination. MUSCULOSKELETAL: No joint or muscle swelling or pain. No neck or back pain. SKIN AND BREASTS: No rash or easy bruising. NEUROLOGIC: No headache, vertigo, loss of consciousness, or loss of sensation. PSYCHIATRIC: No depression or anxiety. ENDOCRINE: No increased thirst. No abnormal weight change. HEMATOLOGIC/LYMPHATIC: No anemia, easy bleeding, or history of blood clots. ALLERGIC/IMMUNOLOGIC: No hives or skin allergy. No latex allergy. GENERAL: [The patient is awake, alert, and fully oriented, in no acute distress. ] HEAD: [Normal with no signs of trauma.] EYES: [Pupils equal, round and reactive to light, extraocular movements intact, sclera anicteric, conjunctiva clear.] ENT: [Ears normal, nares patent, oropharynx clear without exudates. Moist mucous membranes.] NECK: [Normal range of motion, supple without lymphadenopathy, JVD, or masses.] LUNGS: clear HEART: [Regular rate and rhythm, normal S1 and S2 without murmur, rub.] EXTREMITIES: [Normal range of motion, no edema. No clubbing or cyanosis. No cords, erythema, or tenderness.] NEUROLOGICAL: [Cranial nerves II through XII grossly intact. Normal speech, normal gait.] PSYCH: [Normal mood, normal affect.] SKIN: (+) Warm, tenderness to the right 3 rd distal finger with swelling around the nail bed. Past History - Past Medical History Allergies/Adverse Reactions: Allergies Allergy/AdvReac Type Severity Reaction Status Date / Time Iodinated Contrast- Oral and Allergy Intermediate Verified 03/24/18 22:24 IV Dye [Iodinated Contrast Media - Oral and] ibuprofen Allergy Hives Verified 03/24/18 22:24 morphine AdvReac Mild Rash Verified 03/24/18 22:24 Home Medications: Ambulatory Orders Amlodipine Besylate [Norvasc -] 10 mg PO DAILY 04/25/16 Cephalexin [Keflex] 500 mg PO BID #10 capsule 03/24/18 COPD: No HTN: Yes - Surgical History Appendectomy: Yes - Reproductive History (#): 10 Para: 4 Therapeutic (s) & number: Yes (5) - Immunization History Td Vaccination: No - Suicide/Smoking/Psychosocial Hx Smoking Status: No Smoking History: Never smoked Have you smoked in the past 12 months: No Number of Cigarettes Smoked Daily: 0 Hx Alcohol Use: No Drug/Substance Use Hx: No Substance Use Type: None Hx Substance Use Treatment: No *Physical Exam - Vital Signs Last Vital Signs Temp Pulse Resp BP Pulse Ox 98.3 F 86 18 133/88 99 03/24/18 22:22 03/24/18 22:22 03/24/18 22:22 03/24/18 22:22 03/24/18 22:22 Moderate Sedation - Procedure Monitoring Vital Signs: Procedure Monitoring Vital Signs Temperature 98.3 F 03/24/18 22:22 Pulse Rate 86 03/24/18 22:22 Respiratory Rate 18 03/24/18 22:22 Blood Pressure 133/88 03/24/18 22:22 O2 Sat by Pulse Oximetry (%) 99 03/24/18 22:22 Procedures - Incision and Drainage I&D Site: Right: Paronychia (3rd finger) Anesthesia: 1% Lidocaine Blade Size: 11 Iodinated Packin/4 in Plain Packing: Yes Complications: none ED Treatment Course - Medications Given in the ED: ED Medications Discontinued Medications Generic Name Dose Route Start Last Admin Trade Name Freq PRN Reason Stop Dose Admin Lidocaine HCl 10 ml 03/24/18 22:46 03/24/18 23:15 Xylocaine 1% SQ 03/24/18 22:47 10 ml ONCE ONE Administration Medical Decision Making - Medical Decision Making 03/24/18 23:27 Patient is a 42 year old female with h/o HTN c/o swelling, pain and redness to the right 3rd finger distal tip. States 3 days ago tore the cuticle off then the finger got swollen progressively worsened now pain 4/10, throbbing consistent with paronychia. I&D done Rx to pharmacy for keflex I discussed the physical exam findings, ancillary test results and final diagnoses with the patient. I answered all of the patient's questions. The patient was satisfied with the care received and felt comfortable with the discharge plan and treatment plan. The Patient agrees to follow up with the primary care physician within 24-72 hours. *DC/Admit/Observation/Transfer Diagnosis at time of Disposition: Paronychia - Discharge Dispostion Disposition: HOME Condition at time of disposition: Stable - Prescriptions Prescriptions: Cephalexin [Keflex] 500 mg PO BID #10 capsule - Referrals Referrals: Anthony Gee [Primary Care Provider] - - Patient Instructions - Post Discharge Activity
== END 2018-03-25 00:13 | disposition home or self-care (01) ==
LOC: JERFT 22:20 → JER 22:20 → JERFT 03-25 00:13
PROC: 0J9J0ZZ Drainage of Right Hand Subcutaneous Tissue and Fascia, Open Approach (ICD-10-PCS; principal; 2018-03-24)
DX: L03.011 Cellulitis of right finger (principal)
CPT/HCPCS: 99281-25

== ENCOUNTER 2018-08-14 16:49 | Emergency (ER) | payer OTHER ==
--- NOTE | 2018-08-14 16:55 | PDOC ---
Rapid Medical Evaluation Time Seen by Provider: 08/14/18 16:52 Medical Evaluation: Allergies Allergy/AdvReac Type Severity Reaction Status Date / Time Iodinated Contrast- Oral and Allergy Intermediate Verified 03/24/18 22:24 IV Dye [Iodinated Contrast Media - Oral and] ibuprofen Allergy Hives Verified 03/24/18 22:24 morphine AdvReac Mild Rash Verified 03/24/18 22:24 08/14/18 16:52 HPI: Passed out last night at home and woke up on the floor PE: No gross deficits ORDERS: Cardiac work up and head CT Discharge Disposition - Diagnosis Hx of syncope - Referrals - Patient Instructions - Post Discharge Activity
[2018-08-14 16:56] VITALS: BMI 43.4
[2018-08-14] MEDS ORDERED: SODIUM CHLORIDE 1,000 ML IV SCH (17:00)
--- NOTE | 2018-08-14 17:20 | PDOC ---
History of Present Illness - General Chief Complaint: Syncope/Near Syncope Stated Complaint: DIZZINES Time Seen by Provider: 08/14/18 16:52 History Source: Patient Exam Limitations: No Limitations - History of Present Illness Initial Comments: 08/14/18 18:49 43 year old woman with a past medical history of HTN who presents after episode of loss of consciousness that occurred last night at 2200. The patient went to bed and realized she left the stove on after 3 hours after which she woke up suddenly and ran to the stove, as she was turning the knob that next thing she remembered was that she was on the ground. Her fiance heard a thud and came to see her. She reports she was confused for several minutes and had some dizziness , but was able to get up. The fire departmenet was called and the house was evaluated for carbon monoxide which was negative. The patient reportst that she has felt foggy and that her hearing has felt like she is underground since then. She deneis any nausea or vomiting. Denies any chest pain, shortness of breath, recent illness or fever, dyrusia, diarrhea or constipation. She has no other complaints. meds: amlodipine pmhx: brother with [place] at 37 Past History - Past Medical History Allergies/Adverse Reactions: Allergies Allergy/AdvReac Type Severity Reaction Status Date / Time Iodinated Contrast- Oral and Allergy Intermediate Verified 08/14/18 16:53 IV Dye [Iodinated Contrast Media - Oral and] ibuprofen Allergy Hives Verified 08/14/18 16:53 morphine AdvReac Mild Rash Verified 08/14/18 16:53 Home Medications: Ambulatory Orders Amlodipine Besylate [Norvasc -] 10 mg PO DAILY 04/25/16 COPD: No HTN: Yes - Surgical History Appendectomy: Yes - Reproductive History (#): 10 Para: 4 Therapeutic (s) & number: Yes (5) - Immunization History Td Vaccination: No Immunization Up to Date: Yes - Suicide/Smoking/Psychosocial Hx Smoking Status: No Smoking History: Never smoked Have you smoked in the past 12 months: No Number of Cigarettes Smoked Daily: 0 Hx Alcohol Use: No Drug/Substance Use Hx: No Substance Use Type: None Hx Substance Use Treatment: No Review of Systems - Review of Systems Able to Perform ROS?: Yes Comments:: 08/14/18 18:57 GENERAL/CONSTITUTIONAL: No fever or chills. No weakness. HEAD, EYES, EARS, NOSE AND THROAT: No change in vision. No ear pain or discharge. No sore throat. CARDIOVASCULAR: No chest pain or shortness of breath RESPIRATORY: No cough, wheezing, or hemoptysis. GASTROINTESTINAL: No nausea, vomiting, diarrhea or constipation. GENITOURINARY: No dysuria, frequency, or change in urination. MUSCULOSKELETAL: No joint or muscle swelling or pain. No neck or back pain. SKIN: No rash NEUROLOGIC: No headache, vertigo, loss of consciousness, or change in strength/ sensation. ENDOCRINE: No increased thirst. No abnormal weight change HEMATOLOGIC/LYMPHATIC: No anemia, easy bleeding, or history of blood clots. ALLERGIC/IMMUNOLOGIC: No hives or skin allergy. Is the patient limited Kyrgyz proficient: No *Physical Exam - Vital Signs Last Vital Signs Temp Pulse Resp BP Pulse Ox 98.3 F 77 17 146/85 100 08/14/18 16:54 08/14/18 16:54 08/14/18 16:54 08/14/18 16:54 08/14/18 16:54 - Physical Exam Comments: 08/14/18 18:56 GENERAL: Awake, alert, and fully oriented, in no acute distress HEAD: No signs of trauma, normocephalic, atraumatic EYES: PERRLA, EOMI, sclera anicteric, conjunctiva clear ENT: oropharynx clear without exudates. Moist mucosa NECK: Normal ROM, supple LUNGS: No distress, speaks full sentences, clear to auscultation bilaterally HEART: Regular rate and rhythm, normal S1 and S2, no murmurs, rubs or gallops, peripheral pulses normal and equal bilaterally. ABDOMEN: Soft, nontender, normoactive bowel sounds. No guarding, no rebound. No masses EXTREMITIES : Normal inspection, Normal range of motion, no edema. No clubbing or cyanosis. NEUROLOGICAL: + slight L sided faical numbness, Normal speech, normal gait, no focal sensorimotor deficits SKIN: Warm, Dry, normal turgor, no rashes or lesions noted ED Treatment Course - LABORATORY CBC & Chemistry Diagram: 08/14/18 17:07 08/14/18 19:03 Medical Decision Making - Medical Decision Making 08/14/18 18:54 43 year old woman with a past medical history of HTN who presents after episode of loss of consciousness that occurred last night at 2200. The patient went to bed and realized she left the stove on after 3 hours after which she woke up suddenly and ran to the stove, as she was turning the knob that next thing she remembered was that she was on the ground. Her fiance heard a thud and came to see her. She reports she was confused for several minutes and had some dizziness , but was able to get up. The fire departmenet was called and the house was evaluated for carbon monoxide which was negative. The patient reportst that she has felt foggy and that her hearing has felt like she is underground since then. She deneis any nausea or vomiting. Denies any chest pain, shortness of breath, recent illness or fever, dyrusia, diarrhea or constipation. ED Course: ddx inblt: acs vs arrythmia vs cva vs electroylte vs infectious cbc, cmp, ekg, cxr, head ct, ua family history concerning and exam with L sided facial numbness will evaluate with head CT and patient will likely need echo patient reports she does not plan to stay in the hospital overnight will call PCP Marlen to inform of patient visit and arrrange f/u if patient decides to AMA 08/14/18 19:[address]: no acute pathology 08/14/18 19:58 1+ protein in urine labs wnl patient to AMA *DC/Admit/Observation/Transfer Diagnosis at time of Disposition: Syncope - Discharge Dispostion Disposition: AGAINST MEDICAL ADVICE Condition at time of disposition: Fair Decision to Admit order: No - Referrals Referrals: Shayan Gee MD [Primary Care Provider] - - Patient Instructions Printed Discharge Instructions: DI for Syncope in Adults (Fainting) Additional Instructions: You were seen in the ED for complaints of episode of loss of consciousness. In the ED you were evaluated with labwork and imaging. Your results were unremarkable. We have advised that you require admission for syncope work up that includes further work up and evaluation. You have decided to leave against medical advise. The risks of leaving the hospital without complete evaluation for include , cardiac arrest, heart attack, stroke and repeated loss of consciousness. These risks have been discussed with your for > 45min. You express understanding of these risks and still desire to leave the hospital against medical advice. You are advised to follow up with your Primary Care Physician within 1-2 days. Return to the ED immediately if you experience repeated loss of consciousness, headache, nausea, vomiting, neck pain, chest pain or shortness of breath. - Post Discharge Activity
[2018-08-14 17:21] LABS: EOS % 4.6 % (0-4.5); HEMATOCRIT 38.1 % (32.4-45.2); HEMOGLOBIN 12.3 GM/dL (10.7-15.3); LYMPH % 28.3 % (8-40); MCH 28.2 pg (25.7-33.7); MCHC 32.4 g/dl (32.0-36.0); MEAN CELL VOLUME 87.3 fl (80-96); MEAN PLT VOLUME 8.6 fl (7.5-11.1); MONO % 4.1 % (3.8-10.2); PLATELET COUNT 254 K/MM3 (134-434); RBC 4.36 M/mm3 (3.60-5.2); RDW 14.9 % (11.6-15.6); WHITE BLOOD COUNT 8.7 K/mm3 (4.0-10.0)
[2018-08-14 17:36] LABS: EPI CELLS 16.5 /HPF (0-5/HPF); PH,URINE 6.5 (5.0-8.0); URINE APPEARANCE CLOUDY; URINE BACTERIA 851.1 /hpf (NEGATIVE); URINE BILIRUBIN NEGATIVE (NEGATIVE); URINE CASTS 11 /lpf (0-8); URINE COLOR YELLOW; URINE GLUCOSE (UA) NEGATIVE (NEGATIVE); URINE KETONE TRACE (NEGATIVE); URINE LEUK ESTERASE TRACE (NEGATIVE); URINE NITRITE NEGATIVE (NEGATIVE); URINE PROTEIN 1+ (NEGATIVE); URINE RBC 2 /hpf (0-4); URINE WBC 7 /hpf (0-5)
--- NOTE | 2018-08-14 19:01 | PDOC ---
Documentation entered by Leti Alejandro SCRIBE, acting as scribe for Frieda Rosenthal MD. Frieda Rosenthal MD: This documentation has been prepared by the savannahibe, Leti Alejandro SCRIBE, under my direction and personally reviewed by me in its entirety. I confirm that the documentation accurately reflects all work, treatment, procedures, and medical decision making performed by me. Attending Attestation - Resident Resident Name: WillieKeyla - ED Attending Attestation I have performed the following: I have examined & evaluated the patient, The case was reviewed & discussed with the resident, I agree w/resident's findings & plan, Exceptions are as noted - HPI HPI: 08/14/18 18:08 The patient is a 43 year old female with past medical history of hypertension who presents to the ED s/p syncope last evening around 11 PM. The patient states she was in bed and forgot her oven was on and jumped up out of bed to turn it off. The next thing she remembered was that she was on the floor and did not remember how she got there. Patients reports she was confused for about 2 minute after. Since the instance, she reports feeling cloudy, lightheaded, and notes clogged ears and left facial numbness. She denies experiencing any lightheadedness, palpitations, SOB or chest pain prior to her syncope. Denies headache, visual changes, NVD, further LOC, or other focal neurological deficits. Denies fevers or chills. She denies having any similar episodes in the past. Patient states she has had routine cardiac testing in the past, and denies any positive findings. Family Hx: Brother of [place] in his late 30's. Social Hx: Denies tobacco, alcohol or drug use. PCP: Shayan Gee? - Physicial Exam PE: 08/14/18 18:56 GENERAL: The patient is in no acute distress. ENT: Ears normal, nares patent, oropharynx clear without exudates. Moist mucous membranes. NECK: Normal range of motion, supple LUNGS: Breath sounds equal, clear to auscultation bilaterally. No wheezes, and no crackles. HEART:Regular rate and rhythm, normal S1 and S2 without murmur, rub or gallop. ABDOMEN: Soft, nontender, normoactive bowel sounds. EXTREMITIES: Normal range of motion, no edema. NEUROLOGICAL: Cranial nerves II through XII grossly intact. Normal speech. No focal neurological deficits. SKIN: Warm, Dry, normal turgor, no rashes or lesions noted. - Medical Decision Making 08/14/18 18:57 43 yo F h/o HTN presenting to the ER with a complaint of syncopal episoded Pt jumped up from bed and ran to the kitchen to turn off the oven She remembers touching the oven nob and then passed out the next thing she knew, she heard her trying to find out what happened She saw the oven knob on the floor She actually broke the oven knob She had to call the fire department to turn off the gas because she was unable to turn off the oven No chest pain No palpitations No prior syncopal episodes No focal weakness Pt does feel left facial numbness Neuro exam wnl RRR CTA Will do labs Will do EKG Would like to place on observation
[2018-08-14 19:27] LABS: INR 1.05 (0.83-1.09); PROTHROMBIN TIME (PATIENT) 12.4 SEC (9.7-13.0)
[2018-08-14 19:53] LABS: ALBUMIN 3.4 g/dl (3.4-5.0); ALK PHOS 41 U/L (45-117); ANION GAP 6 MMOL/L (8-16); BILIRUBIN,TOTAL 0.3 mg/dL (0.2-1); BLOOD UREA NITROGEN 12 mg/dL (7-18); CALCIUM 8.2 mg/dL (8.5-10.1); CHLORIDE 107 mmol/L (98-107); CO2 27 mmol/L (21-32); CREATININE 0.7 mg/dL (0.55-1.3); GLUCOSE,RANDOM 86 mg/dL (74-106); POTASSIUM 3.8 mmol/L (3.5-5.1); SGOT/AST 8 U/L (15-37); SGPT/ALT 16 U/L (13-61); SODIUM 140 mmol/L (136-145); TOT PROT 6.8 g/dl (6.4-8.2)
[2018-08-14 20:16] VITALS: BP 136/78; PULSE 72; TEMP 98.1
--- NOTE | 2018-08-15 14:26 | EKG ---
Test Reason : Blood Pressure : / mmHG Vent. Rate : 087 BPM Atrial Rate : 087 BPM P-R Int : 198 ms QRS Dur : 090 ms QT Int : 380 ms P-R-T Axes : 056 -03 042 degrees QTc Int : 457 ms NORMAL SINUS RHYTHM POSSIBLE LEFT ATRIAL ENLARGEMENT LEFT VENTRICULAR HYPERTROPHY ABNORMAL ECG WHEN COMPARED WITH ECG OF 25-APR-2016 12:05, NO SIGNIFICANT CHANGE WAS FOUND Confirmed by BRIAN CHILEL, MYRANDA ([id number]) on 08/15/2018 2:26:23 PM Referred By: Confirmed By:MYRANDA TORRES MD
[2018-08-17 17:08] LABS: CK-MM 100 % (97-100)
== END 2018-08-14 20:16 | disposition left against medical advice (07) ==
LOC: JER 16:49
DX: R55 Syncope and collapse (principal); I10 Essential (primary) hypertension
CPT/HCPCS: 36415; 70450-TC; 80053; 81003; 82552; 84484; 84703; 85025; 85610; 86850; 86900; 86901; 93005; 93010; 99284-25; J7030

== ENCOUNTER 2019-01-20 16:23 | Emergency (ER) | payer OTHER ==
[2019-01-20 16:37] VITALS: BP 127/83; PULSE 79; TEMP 98.2; BMI 41.8
--- NOTE | 2019-01-20 17:42 | PDOC ---
History of Present Illness - General Chief Complaint: Cold Symptoms Stated Complaint: COLD SYMPTOMS Time Seen by Provider: 01/20/19 17:19 - History of Present Illness Initial Comments: 01/20/19 17:41 43-year-old female with a past medical history of hypertension presents for evaluation of cough subjective fever at home and headache x5 days Past History - Past Medical History Allergies/Adverse Reactions: Allergies Allergy/AdvReac Type Severity Reaction Status Date / Time Iodinated Contrast Media Allergy Intermediate Verified 08/14/18 16:53 [Iodinated Contrast Media - Oral and] ibuprofen Allergy Hives Verified 08/14/18 16:53 morphine AdvReac Mild Rash Verified 08/14/18 16:53 Home Medications: Ambulatory Orders Amlodipine Besylate [Norvasc -] 10 mg PO DAILY 04/25/16 Azithromycin [Zithromax -] 250 mg PO UTDICT #6 tab 01/20/19 Guaifenesin Dm [Mucinex Dm -] 1 tab PO BID #60 tab.er.12h 01/20/19 COPD: No HTN: Yes - Surgical History Appendectomy: Yes - Reproductive History (#): 10 Para: 4 Therapeutic (s) & number: Yes (5) - Immunization History Td Vaccination: No Immunization Up to Date: Yes - Psycho Social/Smoking Cessation Hx Smoking Status: No Smoking History: Never smoked Have you smoked in the past 12 months: No Number of Cigarettes Smoked Daily: 0 Information on smoking cessation initiated: No Hx Alcohol Use: No Drug/Substance Use Hx: No Substance Use Type: None Hx Substance Use Treatment: No Review of Systems - Review of Systems Constitutional: Yes: Chills, Fever, Malaise Respiratory: Yes: Cough, Orthopnea Neurological: Yes: Headache *Physical Exam - Vital Signs Last Vital Signs Temp Pulse Resp BP Pulse Ox 98.2 F 79 18 127/83 100 01/20/19 16:31 01/20/19 16:31 01/20/19 16:31 01/20/19 16:31 01/20/19 16:31 - Physical Exam Comments: 01/20/19 17:41 GENERAL: The patient is awake, alert, and fully oriented, in no acute distress. HEAD: Normal with no signs of trauma. EYES: sclera anicteric, conjunctiva clear. ENT: Ears normal NECK: Normal range of motion LUNGS: Breath sounds equal, clear to auscultation bilaterally. No wheezes, and no crackles. HEART: S1 and S2 without murmur, rub or gallop. ABDOMEN: Soft, nontender, normoactive bowel sounds. No guarding, no rebound. No masses. EXTREMITIES: Normal range of motion, no edema. No clubbing or cyanosis. No cords, erythema, or tenderness. NEUROLOGICAL: Cranial nerves II through XII grossly intact. Normal speech, normal gait. PSYCH: Normal mood, normal affect. SKIN: Warm, Dry, normal turgor, no rashes or lesions noted. ED Treatment Course - RADIOLOGY Radiology Studies Ordered: Category Date Time Status CHEST PA & LAT [RAD] Stat Radiology 01/20/19 17:39 Ordered Medical Decision Making - Medical Decision Making 01/20/19 18:46 Influenza swabs are negative chest x-ray clear for pneumonia. I believe this is a bacterial bronchitis given her symptoms we will treat with Zithromax and Mucinex have patient follow-up with PCP Discharge - Discharge Information Problems reviewed: Yes Clinical Impression/Diagnosis: Bronchitis Condition: Stable Disposition: HOME - Admission No - Additional Discharge Information Prescriptions: Azithromycin [Zithromax -] 250 mg PO UTDICT #6 tab Guaifenesin Dm [Mucinex Dm -] 1 tab PO BID #60 tab.er.12h - Follow up/Referral Referrals: Shayan Gee MD [Primary Care Provider] - - Patient Discharge Instructions Additional Instructions: Please take the antibiotics and Mucinex as directed. Return to the emergency room for worsening symptoms. Without fail follow-up with your primary care physician in 1 to 2 days for further evaluation and treatment options. - Post Discharge Activity
== END 2019-01-20 18:54 | disposition home or self-care (01) ==
LOC: JERFT 16:23
DX: J40 Bronchitis, not specified as acute or chronic (principal); I10 Essential (primary) hypertension; Z88.5 Allergy status to narcotic agent; Z88.6 Allergy status to analgesic agent; Z91.041 Radiographic dye allergy status
CPT/HCPCS: 71046-TC-FY; 87804; 99282-25

== ENCOUNTER 2019-02-23 23:40 | Emergency (ER) | payer OTHER ==
[2019-02-24 01:03] VITALS: BMI 39.5
[2019-02-24] MEDS ORDERED: methylPREDNISolone NA SUCC 125 MG/2 ML VIAL IVPB ONE (01:32)
[2019-02-24] MEDS ORDERED: SODIUM CHLORIDE 0.9% 500 ML INFUS.BAG IV ONE (01:39)
--- NOTE | 2019-02-24 01:40 | PDOC ---
History of Present Illness - General Chief Complaint: Respiratory Stated Complaint: COUGH Time Seen by Provider: 02/24/19 01:14 History Source: Patient Exam Limitations: No Limitations - History of Present Illness Initial Comments: 02/24/19 01:2 Patient is a 43 year old female with h/o HTN on Norvasc, right ankle pinning 2/ 2 fx, appendectomy complaining of cough x1 month associated with shortness of breath. Patient states she was treated in the emergency room with a course of Zithromax, review of the chart shows she had a chest x-ray which was negative, however reports that she continues to have this coughing and occasional shortness of breath. She she has an IUD for many years, and a brother who of clot in the lungs. States she occasionally has leg pain and swelling. She denies any fever, chills, chest pain. PMD: Dr. Otero PMHX: As above PSOCHX: neg etoh, drug, cig ALL: NKDA GENERAL/CONSTITUTIONAL: [No fever or chills. No weakness. No weight change.] HEAD, EYES, EARS, NOSE AND THROAT: [No change in vision. No ear pain or discharge. No sore throat.] CARDIOVASCULAR: [No chest pain or shortness of breath.] RESPIRATORY: (+) cough, (-) wheezing, or hemoptysis.] GASTROINTESTINAL: [No nausea, vomiting, diarrhea or constipation. No rectal bleeding.] GENITOURINARY: [No dysuria, frequency, or change in urination.] MUSCULOSKELETAL: [No joint or muscle swelling or pain. No neck or back pain.] SKIN AND BREASTS: [No rash or easy bruising.] NEUROLOGIC: [No headache, vertigo, loss of consciousness, or loss of sensation.] PSYCHIATRIC: [No depression or anxiety.] ENDOCRINE: [No increased thirst. No abnormal weight change.] HEMATOLOGIC/LYMPHATIC: [No anemia, easy bleeding, or history of blood clots.] ALLERGIC/IMMUNOLOGIC: [No hives or skin allergy. No latex allergy.] GENERAL: [The patient is awake, alert, and fully oriented, in no acute distress. ] HEAD: [Normal with no signs of trauma.] EYES: [Pupils equal, round and reactive to light, extraocular movements intact, sclera anicteric, conjunctiva clear.] ENT: [Ears normal, nares patent, oropharynx clear without exudates. Moist mucous membranes.] NECK: [Normal range of motion, supple without lymphadenopathy, JVD, or masses.] LUNGS: [Breath sounds equal, clear to auscultation bilaterally. No wheezes, and no crackles.] HEART: [Regular rate and rhythm, normal S1 and S2 without murmur, rub.] ABDOMEN: [Soft, nontender, normoactive bowel sounds. No guarding, no rebound. No masses.] EXTREMITIES: [Normal range of motion, no edema. No clubbing or cyanosis. No cords, erythema, or tenderness.] NEUROLOGICAL: [Cranial nerves II through XII grossly intact. Normal speech, normal gait.] PSYCH: [Normal mood, normal affect.] SKIN: [Warm, Dry, normal turgor, no rashes or lesions noted.] Past History - Past Medical History Allergies/Adverse Reactions: Allergies Allergy/AdvReac Type Severity Reaction Status Date / Time Iodinated Contrast Media Allergy Intermediate Verified 02/24/19 01:03 [Iodinated Contrast Media - Oral and] ibuprofen Allergy Hives Verified 02/24/19 01:03 morphine AdvReac Mild Rash Verified 02/24/19 01:03 Home Medications: Ambulatory Orders Amlodipine Besylate [Norvasc -] 10 mg PO DAILY 04/25/16 Azithromycin [Zithromax -] 250 mg PO UTDICT #6 tab 01/20/19 Azithromycin [Zithromax -] 250 mg PO UTDICT #6 tab 01/20/19 Guaifenesin Dm [Mucinex Dm -] 1 tab PO BID #60 tab.er.12h 01/20/19 Guaifenesin Dm [Mucinex Dm -] 1 tab PO BID #60 tab.er.12h 01/20/19 COPD: No HTN: Yes - Surgical History Appendectomy: Yes - Reproductive History (#): 10 Para: 4 Therapeutic (s) & number: Yes (5) - Immunization History Td Vaccination: No Immunization Up to Date: Yes - Psycho Social/Smoking Cessation Hx Smoking Status: No Smoking History: Never smoked Have you smoked in the past 12 months: No Number of Cigarettes Smoked Daily: 0 Hx Alcohol Use: No Drug/Substance Use Hx: No Substance Use Type: None Hx Substance Use Treatment: No Respiratory Specific PMHX - Complaint Specific PMHX Hx Bronchitis: No Hx Pneumonia: No Hx Pulmonary Embolus: No Hx TB (Tuberculosis): No *Physical Exam - Vital Signs Last Vital Signs Temp Pulse Resp BP Pulse Ox 98.1 F 81 19 132/81 97 02/23/19 23:45 02/23/19 23:45 02/23/19 23:45 02/23/19 23:45 02/23/19 23:45 Medical Decision Making - Medical Decision Making 02/24/19 01:26 Patient is a 43 year old female with h/o HTN on Norvasc, right ankle pinning 2/ 2 fx, appendectomy complaining of cough x1 month associated with shortness of breath. Patient states she was treated in the emergency room with a course of Zithromax, review of the chart shows she had a chest x-ray which was negative, however reports that she continues to have this coughing and occasional shortness of breath. She she has an IUD for many years, and a brother who of clot in the lungs. States she occasionally has leg pain and swelling. She denies any fever, chills, chest pain. Patient with cough and symptoms x1 month associated with shortness of breath, no chest pain. Patient has been treated for bronchitis with no improvement in symptoms. Patient has many risk factors for PE so will thus rule out a PE today. Labs which include d-dimer Chest x-ray CT angio we will premedicate the patient with Benadryl and Solu-Medrol. Endorsed to Dr. Chavez to follow Discharge - Discharge Information Problems reviewed: Yes Clinical Impression/Diagnosis: Shortness of breath, Cough Condition: Stable - Follow up/Referral Referrals: Anthony Gee [Primary Care Provider] - - Patient Discharge Instructions - Post Discharge Activity
[2019-02-24 02:07] LABS: EOS % 5.7 % (0-4.5); HEMATOCRIT 38.3 % (32.4-45.2); HEMOGLOBIN 12.7 GM/dL (10.7-15.3); MCH 28.8 pg (25.7-33.7); MCHC 33.1 g/dl (32.0-36.0); MEAN CELL VOLUME 87.1 fl (80-96); MEAN PLT VOLUME 8.4 fl (7.5-11.1); MONO % 4.1 % (3.8-10.2); NEUT % 66.2 % (42.8-82.8); PLATELET COUNT 285 K/MM3 (134-434); RDW 14.9 % (11.6-15.6); WHITE BLOOD COUNT 9.2 K/mm3 (4.0-10.0)
[2019-02-24] MEDS ORDERED: methylPREDNISolone NA SUCC 125 MG/2 ML VIAL ONE (02:26)
[2019-02-24 02:42] LABS: ALBUMIN 3.4 g/dl (3.4-5.0); BILIRUBIN,TOTAL 0.2 mg/dL (0.2-1); CALCIUM 8.4 mg/dL (8.5-10.1); CREATININE 0.8 mg/dL (0.55-1.3); POTASSIUM 4.4 mmol/L (3.5-5.1); TOT PROT 7.2 g/dl (6.4-8.2)
--- NOTE | 2019-02-24 02:44 | PDOC ---
*Physical Exam - Vital Signs Last Vital Signs Temp Pulse Resp BP Pulse Ox 98.1 F 81 19 132/81 97 02/23/19 23:45 02/23/19 23:45 02/23/19 23:45 02/23/19 23:45 02/23/19 23:45 ED Treatment Course - LABORATORY CBC & Chemistry Diagram: 02/24/19 01:43 02/24/19 01:43 - ADDITIONAL ORDERS Additional order review: Laboratory Results 02/24/19 01:43 Sodium 138 Potassium 4.4 Chloride 107 Carbon Dioxide 26 Anion Gap 5 L BUN 16.0 Creatinine 0.8 Est GFR (CKD-EPI)AfAm 106.13 Est GFR (CKD-EPI)NonAf 91.57 Random Glucose 91 Calcium 8.4 L Total Bilirubin 0.2 AST 15 ALT 18 Alkaline Phosphatase 46 Total Protein 7.2 Albumin 3.4 02/24/19 01:43 RBC 4.40 MCV 87.1 MCHC 33.1 RDW 14.9 MPV 8.4 Neutrophils % 66.2 Lymphocytes % 23.0 Monocytes % 4.1 Eosinophils % 5.7 H Basophils % 1.0 Medical Decision Making - Medical Decision Making 02/24/19 02:43 Pt signed out to ne. Pt has normal labs; ddimer pending. 02/24/19 03:22 ddimer is elevated higher than she has ever been 900s 02/24/19 04:35 Patient Name: HADLEY SHIN THIS IS A PRELIMINARY REPORT FROM [facility] DATE OF SERVICE: 2019-02-24 03:46:10 IMAGES: [id number] EXAM: CHEST CTA HISTORY: Rule out PE COMPARISON: None. FINDINGS: There is no PE, although there is mildly suboptimal opacification of the pulmonary arteries. No aortic aneurysm or dissection. Heart size is normal. The trachea and bronchi are patent. There is no pleural or pericardial effusion. The lungs are clear. No fractures identified. The upper abdominal structures are normal. IMPRESSION: No acute pathology although there is mildly suboptimal opacification of the pulmonary arteries. Pt will be discharged Discharge - Discharge Information Problems reviewed: Yes Clinical Impression/Diagnosis: Shortness of breath, Cough, Obesity (BMI 30-39.9) Condition: Stable - Admission No - Follow up/Referral Referrals: Anthony Gee [Primary Care Provider] - - Patient Discharge Instructions Patient Printed Discharge Instructions: Eating a Diet Rich in Fruits and Vegetables - Post Discharge Activity Work/Back to School Note: Back to Work
[2019-02-24 06:29] VITALS: BP 131/74; PULSE 84; TEMP 98.3
== END 2019-02-24 05:55 | disposition home or self-care (01) ==
LOC: JER 23:40
PROC: 3E0333Z Introduction of Anti-inflammatory into Peripheral Vein, Percutaneous Approach (ICD-10-PCS; principal; 2019-02-23)
PROC: 3E033GC Introduction of Other Therapeutic Substance into Peripheral Vein, Percutaneous Approach (ICD-10-PCS; 2019-02-23)
DX: R05 Cough (principal); R06.02 Shortness of breath; I10 Essential (primary) hypertension; E66.9 Obesity, unspecified; Z68.39 Body mass index [BMI] 39.0-39.9, adult; Z88.5 Allergy status to narcotic agent; Z88.6 Allergy status to analgesic agent; Z91.041 Radiographic dye allergy status
CPT/HCPCS: 36415; 71275-TC; 80053; 84703; 85025; 85379; 99283-25

== ENCOUNTER 2022-11-21 20:39 | Emergency (ER) | payer SELFPAY ==
[2022-11-21 20:51] VITALS: BP 130/77; PULSE 66; RESP 18; TEMP 98.2; BMI 43.2
[2022-11-21] MEDS ORDERED: KETOROLAC TROMETHAMINE 60 MG/2 ML VIAL IM ONE (22:30)
[2022-11-21] MEDS ORDERED: KETOROLAC TROMETHAMINE 60 MG/2 ML VIAL ONE (22:52)
== END 2022-11-22 00:40 | disposition home or self-care (01) ==
LOC: JERFT 20:39
PROC: 3E0233Z Introduction of Anti-inflammatory into Muscle, Percutaneous Approach (ICD-10-PCS; principal; 2022-11-21)
DX: M79.672 Pain in left foot (principal); M79.662 Pain in left lower leg; M76.62 Achilles tendinitis, left leg; M79.671 Pain in right foot; M77.32 Calcaneal spur, left foot
CPT/HCPCS: 73610-TC-LT-FY; 73630-TC-LT; 99284-25

== ENCOUNTER 2024-07-14 16:43 | Emergency (ER) | payer OTHER ==
[2024-07-14 16:56] VITALS: BP 127/77; PULSE 86; RESP 20; TEMP 98.2; BMI 45.8
[2024-07-14] MEDS ORDERED: METOCLOPRAMIDE HCL INJECTION 10 MG/2 ML VIAL ONE (17:31)
[2024-07-14] MEDS ORDERED: ACETAMINOPHEN INJECTION 100 ML ONE (17:31)
[2024-07-14 17:57] LABS: ABSOLUTE IMMATURE GRANULOCYTES 0.03 x10^3/uL (0.0-0.031); BASOPHILS # 0.04 x10^3/uL (0.01-0.08); EOSINOPHIL % 4.7 % (0.7-5.8); EOSINOPHILS # 0.47 x10^3/uL (0.04-0.36); HEMATOCRIT 36.4 % (34.1-44.9); HEMOGLOBIN 11.8 g/dL (11.2-15.7); MCHC 32.4 g/dl (32.2-35.5); MEAN CELL VOLUME 86.7 fl (79.4-94.8); MONOCYTE # 0.32 x10^3/uL (0.24-0.86); MONOCYTE % 3.2 % (4.7-12.5); PLATELET COUNT 278 x10^3/uL (182-369); RDW 14.3 % (12.2-17.1)
[2024-07-14 17:59] LABS: URINE APPEARANCE CLEAR; URINE BILIRUBIN NEGATIVE (NEGATIVE); URINE COLOR YELLOW; URINE GLUCOSE (UA) NEGATIVE (NEGATIVE); URINE KETONE NEGATIVE (NEGATIVE); URINE LEUK ESTERASE NEGATIVE (NEGATIVE); URINE NITRITE NEGATIVE (NEGATIVE); URINE PROTEIN NEGATIVE (NEGATIVE)
[2024-07-14] MEDS: ACETAMINOPHEN 1000 MG/100 ML BAG IVPB ONE (18:03)
[2024-07-14] MEDS: METOCLOPRAMIDE HCL INJECTION 10 MG/2 ML VIAL IVPB ONE (18:03)
[2024-07-14] MEDS: LACTATED RINGERS SOLUTION 1000 ML INFUS.BAG IV ONE (18:23)
[2024-07-14] MEDS: METOCLOPRAMIDE HCL 10 MG TABLET (FP) PO ONE (18:42)
[2024-07-14] MEDS: ACETAMINOPHEN 500 MG TABLET (FP) PO ONE (18:42)
[2024-07-14 18:49] LABS: POTASSIUM 3.8 mmol/L (3.5-5.1)
[2024-07-14 18:51] LABS: CALCIUM 8.8 mg/dL (8.5-10.1)
[2024-07-14 18:52] LABS: ALBUMIN 3.4 g/dl (3.4-5.0); BLOOD UREA NITROGEN 14.2 mg/dL (7-18); MAGNESIUM 1.9 mg/dL (1.8-2.4)
[2024-07-14 18:55] LABS: CREATININE 0.8 mg/dL (0.55-1.3)
[2024-07-14 18:56] LABS: BILIRUBIN,TOTAL 0.3 mg/dL (0.2-1); TOT PROT 7.4 g/dl (6.4-8.2)
[2024-07-14 19:13] LABS: HCV DIAGNOSTIC IN-HOUSE W/RFLX NON-REACTIVE (NONREACTIVE); HIV INTERPRETATION NEGATIVE (NEGATIVE)
== END 2024-07-14 19:15 | disposition home or self-care (01) ==
LOC: JER 16:43
PROC: 3E033NZ Introduction of Analgesics, Hypnotics, Sedatives into Peripheral Vein, Percutaneous Approach (ICD-10-PCS; principal; 2024-07-14)
PROC: 3E033GC Introduction of Other Therapeutic Substance into Peripheral Vein, Percutaneous Approach (ICD-10-PCS; 2024-07-14)
DX: R51.9 Headache, unspecified (principal); H53.141 Visual discomfort, right eye
CPT/HCPCS: 36415; 80053; 81003; 83735; 84703; 85025; 86803; 87389; 99284-25; J0131